=== PATIENT | female | born 1990 | race Asian ===

== ENCOUNTER 2018-09-27 16:40 | Emergency (ER) | payer BC ==
[~2018-09-27] VITALS: Ht 162.6 cm; Wt 90.7 kg
[2018-09-27 18:12] LABS: PLATELET COUNT 377 K/uL (152-353)
[2018-09-27 18:23] LABS: POTASSIUM 4.5 mmol/L (3.6-5.2)
[2018-09-27 19:57] VITALS: BP 117/71; TEMP 98.1
== END 2018-09-27 20:15 | disposition home or self-care (01) ==
LOC: ED 16:40
PROVIDERS: Family Medicine
DX: J06.9 Acute upper respiratory infection, unspecified (principal); M94.0 Chondrocostal junction syndrome [Tietze]
CPT/HCPCS: 36415; 80053; 85027; 99283